=== PATIENT | female | born 1960 | race American Indian/Alaskan Native ===

== ENCOUNTER 2017-03-26 06:30 | Day surgery (SDC) | payer OTHER ==
[2017-03-26] MEDS ORDERED: DIPRIVAN 10 MG/ML IV ONE (07:27)
[2017-03-26] MEDS ORDERED: SUBLIMAZE ONE (07:28)
[2017-03-26] MEDS ORDERED: NACL BACTERIOSTATIC INFILTRATI ONE (07:40)
--- NOTE | 2017-03-26 07:43 | Anesthesia Consultation ---
Anesthesia Consult and Med Hx Date of service: 03/26/17 - Airway Anesthetic Teeth Evaluation: Good ROM Head & Neck: Adequate Mental/Hyoid Distance: Adequate Mallampati Class: Class II Intubation Access Assessment: Probably Good - Pulmonary Exam CTA: Yes - Cardiac Exam Cardiac Exam: RRR - Pre-Operative Health Status ASA Pre-Surgery Classification: ASA2 Proposed Anesthetic Plan: General - Pulmonary Hx Smoking: No (QUIT 23 YRS AGO) Hx Asthma: No Hx Respiratory Symptoms: No SOB: No COPD: No Hx Pneumonia: No Hx Sleep Apnea: No - Cardiovascular System Hx Hypertension: Yes Hx Coronary Artery Disease: No Hx Heart Attack/AMI: No Hx Angina: No Hx Peripheral Vascular Disease: No - Central Nervous System Hx Seizures: No CVA: No Hx Psychiatric Problems: No - Gastrointestinal Hx Gastroesophageal Reflux Disease: No - Endocrine Hx Renal Disease: No Hx End Stage Renal Disease: No Hx Insulin Dependent Diabetes: No Hx Non-Insulin Dependent Diabetes: Yes - Hematic Hx Anemia: Yes - Other Systems Hx Alcohol Use: No Hx Substance Use: No Hx Cancer: No Hx Obesity: No
[2017-03-26] MEDS ORDERED: PERCOCET 5/325 PO PRN (07:44)
[2017-03-26] MEDS ORDERED: MORPHINE IV PRN (07:44)
[2017-03-26] MEDS ORDERED: ZOFRAN IV PRN (07:44)
--- NOTE | 2017-03-26 07:44 | Anesthesia Day of Surgery ---
Anesthesia Day of Surgery - Day of Surgery Patient Examined: Yes Patient H&P Reviewed: Yes Patient is NPO: Yes
[2017-03-26] MEDS ORDERED: GARAMYCIN IV SCH (07:45)
--- NOTE | 2017-03-26 07:46 | Short Stay Summary ---
Short Stay Documentation Date of service: 03/26/17 Narrative H&P: Pt is a 56yo BF G0 presents for surgical evaluation and treatment of postmenopausal bleeding. Pelvic u/s showed a thickened endometrium with irregular borders. She is now scheduled for a Hysteroscopy with D&C. She had a previous Hysteroscopy with D&C in 2015 with benign pathology. - History Principal diagnosis: Postmenopausal bleeding H&P: obtained from office Past Medical History: No medical history Past Surgical History: Other (D&C) Social history: no significant social history, - Allergies and Medications Current Medications: Allergies meperidine HCl [From Demerol] Allergy (Verified 02/07/15 09:02) Itching Penicillins Allergy (Verified 02/07/15 09:02) Swelling Home Medications Medication Instructions Recorded Confirmed Last Taken Type Losartan [Cozaar] 50 mg PO DAILY #30 tablet 06/21/15 03/26/17 03/26/17 05:30 Rx Multivitamin with Folic Acid [One 400 mcg PO DAILY #30 tablet 06/21/15 03/26/17 03/24/17 Rx Daily Multivitamin Tablet] Amlodipine Besylate [Norvasc] 10 mg PO QDAY 03/26/17 03/26/17 03/26/17 05:30 History Empagliflozin (Nf) [Jardiance (Nf)] 1 tab PO QDAY 03/26/17 03/26/17 03/25/17 History Active Medications Gentamicin Sulfate (Garamycin) 120 mg 1.5 mg/kg (120 mg) IV PREOP MARIE PRN Reason: Protocol Clindamycin HCl (Cleocin 600 Mg/50 Ml) 600 mg in 50 mls @ 100 mls/hr IV PREOP NR PRN Reason: Protocol Lactated Ringer's (Lactated Ringers) 1,000 mls @ 125 mls/hr IV DIRECT MARIE - Physical exam General appearance: no acute distress Integumentary: no rash HEENT: Atraumatic Lungs: Clear to auscultation Breasts: deferred Heart: Regular rate Gastrointestinal: normal Female Genitourinary: deferred Rectal Exam: deferred Extremities: No edema Neurological: Normal gait, Normal speech - Brief post op/procedure progress note Date of procedure: 03/26/17 Pre-op diagnosis: Postmenopausal bleeding Post-op diagnosis: same Procedure: 1. Hysteroscopy 2. D&C Anesthesia: MAC Findings: A 10 weeks size uterus with moderate amounts of endometrial tissue obtained for pathology. Surgeon: WILNER ARNETT Estimated blood loss: minimal Pathology: list (endometrial curettings) Specimen disposition: to lab Condition: stable - Hospital course Hospital course: Unremarkable. - Disposition Condition at discharge: Good Disposition: DC- TO HOME OR SELFCARE - Discharge Diagnoses (1) Post-menopausal bleeding Status: Acute Short Stay Discharge Plan Activity: no restrictions Diet: regular Additional Instructions: YOU CAN REMOVE YOUR SCOPALAMINE PATCH IN 3 DAYS. WASH YOUR HANDS AFTER REMOVING. Follow up with: PRIMARY CARE, [Primary Care Provider] - 7 Days WILNER ARNETT MD [Staff Physician] - 14 Days Prescriptions: Ibuprofen [Motrin] 800 mg PO Q8HR PRN #20 tablet PRN Reason: Pain, Moderate (4-6)
[2017-03-26] MEDS ORDERED: TRANSDERM-SCOP TD NR (08:00)
[2017-03-26] MEDS ORDERED: LACTATED RINGERS 1,000 ML IV SCH (08:00)
[2017-03-26] MEDS ORDERED: VERSED IV NR (08:00)
[2017-03-26] MEDS ORDERED: PEPCID PO NR (08:00)
[2017-03-26] MEDS ORDERED: GARAMYCIN/NS 120MG/100ML 120 MG/100 ML BAG IV NR (08:00)
[2017-03-26] MEDS ORDERED: CLEOCIN 600 MG/50 mL 600 MG/50 ML BAG IV NR (08:00)
[2017-03-26 08:17] LABS: Hematocrit 43.7 % (30.3-42.9); Hemoglobin 14.6 gm/dl (10.1-14.3)
[2017-03-26] MEDS ORDERED: XYLOCAINE MPF 2% ONE (08:50)
[2017-03-26] MEDS ORDERED: DECADRON ONE (08:51)
[2017-03-26] MEDS ORDERED: ZOFRAN ONE (08:51)
[2017-03-26] MEDS ORDERED: NACL 0.9% IR ONE ×2 (09:00)
--- NOTE | 2017-03-26 09:07 | Operative Report ---
Operative Report Operative Report: PREOPERATIVE DIAGNOSIS: Postmenopausal bleeding POSTOPERATIVE DIAGNOSIS: Same OPERATIVE PROCEDURE: 1. Hysteroscopy 2. Dilatation and curettage. SURGEON: Myron Becker MD ANESTHESIA: Gen. Mac ANESTHESIOLOGIST: Dr. Thomas ESTIMATED BLOOD LOSS: 10 mL's FINDINGS: A 10 week size uterus with moderate amount of endometrial tissue obtained COMPLICATIONS: None COUNTS: Correct x3. PROCEDURE: After the patient was correctly identified, and after general anesthesia was administered, the patient was prepped and draped in the usual sterile fashion and placed in dorsal lithotomy position. First, the bladder was emptied using a straight catheter. Next, a speculum was placed in the vaginal vault and the anterior lip of the cervix was grasped using a single- tooth tenaculum. The uterus was sounded to 10 cm. The cervical os was sequentially dilated, and hysteroscope was introduced into the cervical canal. Visualization of endometrial cavity found lush amounts of endometrial tissue and possible endometrial polyps. Next the hysteroscope was removed, and sharp curettage was performed yielding moderate amounts of endometrial tissue was sent to pathology. At this point the procedure was considered complete. All instruments were removed from the vagina. The patient tolerated the procedure well and was transferred to the recovery room in stable condition.
--- NOTE | 2017-03-26 13:23 | Post Anesthesia Evaluation ---
- Post Anesthesia Evaluation Patient Participated: Yes Airway Patent: Yes Stable Respiratory Function: Yes Nausea/Vomiting: No Temp > 96.8F: Yes Pain Manageable: Yes Adequeate Hydration: Yes Anesthesia Complications: No
[2017-03-26 14:43] VITALS: BP 106/73
== END 2017-03-26 11:13 | disposition home or self-care (01) ==
LOC: OR 06:30
PROVIDERS: ATTEND Obstetrics & Gynecology
DX: N95.0 Postmenopausal bleeding (principal); I10 Essential (primary) hypertension; E11.9 Type 2 diabetes mellitus without complications; Z88.0 Allergy status to penicillin; Z88.5 Allergy status to narcotic agent; Z79.899 Other long term (current) drug therapy; Z87.891 Personal history of nicotine dependence
CPT/HCPCS: 36415; 58558; 82962; 85014; 85018; 88305; A4217; J1100; J1580; J2250; J2270; J2405; J2704; J3010; J7120

== ENCOUNTER 2017-04-14 10:57 | Inpatient (IN) | payer OTHER ==
--- NOTE | 2017-04-08 11:35 | Anesthesia Consultation ---
Anesthesia Consult and Med Hx Date of service: 04/08/17 - Airway Anesthetic Teeth Evaluation: Good ROM Head & Neck: Adequate Mental/Hyoid Distance: Adequate Mallampati Class: Class I Intubation Access Assessment: Good - Pulmonary Exam CTA: Yes - Cardiac Exam Cardiac Exam: RRR - Pre-Operative Health Status ASA Pre-Surgery Classification: ASA3 Proposed Anesthetic Plan: General - Pulmonary Hx Smoking: No (QUIT 24 YRS AGO) Hx Respiratory Symptoms: No - Cardiovascular System Hx Hypertension: Yes Hx Peripheral Vascular Disease: No - Central Nervous System Hx Psychiatric Problems: No - Gastrointestinal Hx Gastroesophageal Reflux Disease: No - Endocrine Hx Insulin Dependent Diabetes: No Hx Non-Insulin Dependent Diabetes: Yes - Hematic Hx Anemia: Yes - Other Systems Hx Cancer: No Hx Obesity: No - Additional Comments Anesthesia Medical History Comments: had PONV in the past. Scope patch works well. Has trouble sleeping but no sleep apnea. Lost neice few weeks ago.
[2017-04-08 12:15] LABS: Hematocrit 47.3 % (30.3-42.9); Hemoglobin 15.2 gm/dl (10.1-14.3); Mean Corpuscular HGB Conc 32 % (30-34); Mean Corpuscular Hemoglobin 27 pg (28-32); Mean Corpuscular Volume 85 fl (79-97); Platelet Count 227 K/mm3 (140-440); Red Cell Distribution Width 13.3 % (13.2-15.2); White Blood Count 12.8 K/mm3 (4.5-11.0)
[2017-04-08 12:28] LABS: Anion Gap 17 mmol/L; BUN/Creatinine Ratio 20; Blood Urea Nitrogen 16 mg/dL (7-17); Calcium 9.4 mg/dL (8.4-10.2); Carbon Dioxide 28 mmol/L (22-30); Chloride 98.8 mmol/L (98-107); Glucose 87 mg/dL (65-100); Potassium 3.9 mmol/L (3.6-5.0); Sodium 140 mmol/L (137-145)
[2017-04-08 14:15] LABS: Basophils % (Manual) 0 % (0.0-1.8); Blastocytes % (Manual) 0 %; Diff Status Complete; RBC Morphology Normal
[~2017-04-14 10:57] MED LIST: LACTATED RINGERS 1,000 ML IV SCH; PEPCID PO NR; TRANSDERM-SCOP TD NR; VERSED IV NR
--- NOTE | 2017-04-14 11:22 | History and Physical Report ---
History of Present Illness Date of examination: 04/14/17 Chief complaint: Postmenopausal bleeding History of present illness: Pt is a 56yo BF G0 LMP 01/2015 who presents for surgical evaluation and treatment of postmenopausal bleeding. Pelvic u/s showed a thickened endometrium with irregular borders. She had a Hysteroscopy with D&C which showed benign pathology 03/26/17 and now she presents for a Robotic Assisted Total Hysterectomy with Bilateral SalpingoOophorectomy. Past History Past Medical History: no pertinent history Past Surgical History: D&C, other (ovarian cystectomy) Family/Genetic History: none Social history: no significant social history, Medications and Allergies Allergies Allergy/AdvReac Type Severity Reaction Status Date / Time meperidine HCl [From Demerol] Allergy Itching Verified 04/07/17 19:32 Penicillins Allergy Swelling Verified 04/07/17 19:32 Home Medications Medication Instructions Recorded Confirmed Last Taken Type Losartan [Cozaar] 50 mg PO DAILY #30 tablet 06/21/15 04/14/17 04/14/17 08:45 Rx Multivitamin with Folic Acid [One 400 mcg PO DAILY #30 tablet 06/21/15 04/14/17 04/11/17 Rx Daily Multivitamin Tablet] Amlodipine Besylate [Norvasc] 10 mg PO QDAY 03/26/17 04/14/17 04/13/17 16:00 History Empagliflozin (Nf) [Jardiance (Nf)] 1 tab PO QDAY 03/26/17 04/14/17 04/13/17 History Ibuprofen [Motrin] 800 mg PO Q8HR PRN #20 tablet 03/26/17 04/14/17 04/07/17 Rx Active Meds: Active Medications Lactated Ringer's (Lactated Ringers) 1,000 mls @ 100 mls/hr IV DIRECT MARIE Midazolam HCl (Versed) 2 mg IV PREOP NR Stop: 04/14/17 23:59 Scopolamine (Transderm-Scop) 1 each TD PREOP NR Stop: 04/14/17 23:00 Review of Systems All systems: negative - Vital Signs Vital signs: Vital Signs Temp Pulse Resp BP 98.2 F 64 16 94/60 04/08/17 11:00 04/08/17 11:00 04/08/17 11:00 04/08/17 11:00 Temp Pulse Resp BP Pulse Ox 98.2 F 64 16 94/60 04/08/17 11:00 04/08/17 11:00 04/08/17 11:00 04/08/17 11:00 - Physical Exam Breasts: Positive: deferred Cardiovascular: Regular rate Lungs: Positive: Clear to auscultation Abdomen: Positive: normal appearance Genitourinary (Female): Positive: normal external genitalia Vagina: Positive: normal moisture Uterus: Positive: enlarged Extremities: Positive: normal Results Result Diagrams: 04/14/17 11:25 04/08/17 11:30 All other labs normal. Ultrasound: report reviewed Assessment and Plan - Patient Problems (1) Post-menopausal bleeding Onset Date: 04/14/17 Current Visit: No Status: Acute Plan to address problem: A: Postmenopausal bleeding - Benign endometrial biopsy P: Will proceed with a Robotic Assisted Total Hysterectomy with Bilateral SalpingoOophorectomy
[2017-04-14] MEDS ORDERED: GARAMYCIN 120 MG in NACL 0.9% 100 ML IV SCH (11:30)
[2017-04-14] MEDS ORDERED: CLEOCIN 600 MG/50 mL 600 MG/50 ML BAG IV SCH (12:00)
[2017-04-14] MEDS ORDERED: GARAMYCIN/NS 120MG/100ML 120 MG/100 ML BAG IV SCH (12:00)
[2017-04-14 12:11] LABS: Basophils % (Auto) 0.6 % (0.0-1.8); Eosinophils % (Auto) 3.5 % (0.0-4.3); Hematocrit 41.1 % (30.3-42.9); Hemoglobin 13.4 gm/dl (10.1-14.3); Mean Corpuscular HGB Conc 33 % (30-34); Mean Corpuscular Hemoglobin 27 pg (28-32); Mean Corpuscular Volume 84 fl (79-97); Platelet Count 193 K/mm3 (140-440); Red Blood Count 4.89 M/mm3 (3.65-5.03); Red Cell Distribution Width 13.1 % (13.2-15.2); White Blood Count 10.3 K/mm3 (4.5-11.0)
[2017-04-14] MEDS ORDERED: SUBLIMAZE ONE (12:15)
[2017-04-14] MEDS ORDERED: DIPRIVAN 10 MG/ML IV ONE (12:15)
[2017-04-14] MEDS ORDERED: MARCAINE 0.5% INFILTRATI NR (12:15)
[2017-04-14] MEDS ORDERED: DECADRON IV NR (12:30)
[2017-04-14] MEDS ORDERED: SUBLIMAZE IV NR (12:30)
[2017-04-14] MEDS ORDERED: PEPCID PO NR (12:30)
[2017-04-14] MEDS ORDERED: NEURONTIN PO NR (12:30)
--- NOTE | 2017-04-14 12:33 | Anesthesia Day of Surgery ---
Anesthesia Day of Surgery - Day of Surgery Patient Examined: Yes Patient H&P Reviewed: Yes Patient is NPO: Yes
[2017-04-14] MEDS ORDERED: NEOSPORIN GU IR ONE ×2 (12:41→14:25)
[2017-04-14] MEDS ORDERED: ZEMURON IV ONE (13:28)
[2017-04-14] MEDS ORDERED: DECADRON ONE (13:28)
[2017-04-14] MEDS ORDERED: XYLOCAINE MPF 2% ONE (13:28)
[2017-04-14] MEDS ORDERED: NEOSTIGMINE ONE (13:34)
[2017-04-14] MEDS ORDERED: ROBINUL ONE (13:34)
[2017-04-14] MEDS ORDERED: KENALOG-40 ONE (13:39)
[2017-04-14] MEDS ORDERED: NEO SYNEPHRINE/NS Syringe(OR USE) IV ONE (13:39)
[2017-04-14] MEDS ORDERED: MARCAINE 0.5% INFILTRATI ONE ×2 (13:39→14:26)
[2017-04-14] MEDS ORDERED: TORADOL ONE (13:45)
[2017-04-14] MEDS ORDERED: ZOFRAN ONE (13:45)
[2017-04-14] MEDS ORDERED: LACTATED RINGERS 1,000 ML ONE (13:55)
[2017-04-14] MEDS ORDERED: TYLENOL PO PRN (14:23)
[2017-04-14] MEDS ORDERED: ZOFRAN IV PRN (14:23)
[2017-04-14] MEDS ORDERED: NORCO 5/325 PO PRN (14:23)
[2017-04-14] MEDS ORDERED: MILK OF MAGNESIA PO PRN (14:23)
[2017-04-14] MEDS ORDERED: NARCAN 0.4 MG/1 ML IV PRN (14:23)
[2017-04-14] MEDS ORDERED: KENALOG-40 IM ONE (14:26)
[2017-04-14] MEDS ORDERED: NACL 0.9% IR ONE ×2 (14:26)
--- NOTE | 2017-04-14 14:40 | Operative Report ---
Operative Report Operative Report: Date of procedure: 04/14/2017 Pre-operative diagnosis: Postmenopausal bleeding Post-operative diagnosis: Same Procedure name(s): 1. Robotic-assisted total hysterectomy 2. Left salpingo- oophorectomy Surgeon: Myron Becker MD Amusement Ride Inspector: Constance Casper SA Anesthesia: NANCIE block followed by general endotracheal intubation by Dr. Thomas EBL: 50 mL's Findings: A 10-12 week size uterus with normal left tube and atrophic left ovary. Absent right fallopian tube and ovary. Procedure: After the patient's first correctly identified she was prepped and draped in the usual sterile fashion and placed in the dorsolithotomy position. The bladder was first catheterized using Coelho catheter and the speculum was placed in the vagina and the anterior lip of the cervix was grasped using a single-tooth tenaculum, and the medium Vesicare cup was placed. The tenaculum and speculum was then removed from the vagina and attention was then turned to the abdomen. The skin knife was used to make a small incision approximately 5 cm above the umbilicus through which a 12 mm trocar was placed under direct visualization. After adequate amount of abdominal insufflation visualization of the pelvic organs found the uterus to be enlarged and the left tube was found to be normal and the left ovary atrophic. The right fallopian tube and ovary were absent. A right lateral incision was made through which a 5 mm trocar was placed under direct visualization. A right and left paramedian incision was made through which the 8 mm trochars were placed under direct visualization. The patient was then placed in steep Trendelenburg positioning and the robot was docked on the patient's left side. After all the robotic ports were connected and adequate functioning of the robotic arms were tested the surgeon then proceeded to the console to begin the hysterectomy. First the left round ligament was grasped, cauterized and cut, the left infundibulopelvic ligament was grasped, cauterized and cut, and the left fallopian tube also grasped, cauterized and cut thus freeing the left ovary from the left pelvic sidewall. The right fallopian tube and ovary were absent. The right round ligament was grasped, cauterized and cut, thus freeing the uterus from the right pelvic sidewall. The bladder flap was taken down anteriorly and the uterine vessels were grasped, cauterized and cut bilaterally. The cardinal ligaments were sequentially grasped, cauterized and cut down to the level of the uterosacral ligaments. At this time the posterior colpotomy was performed over the Vcare cup, and the cervix was circumscribed beginning posteriorly and meeting anteriorly until the cervix was freed. The cervix, uterus, left fallopian tube and ovary was then removed through the vagina and sent to pathology. The vaginal cuff was then closed using 2-0 Vloc suture in a running fashion. Irrigation was then performed and after good hemostasis was achieved, the procedure was considered complete. The Tisseel sealant was then sprayed across the vaginal cuff site, and after excellent hemostasis was assured, Interceed was placed across the vaginal cuff site. All instruments were then removed from the abdominal cavity. And each incision was closed using 0 Vicryl suture in a [id number] configuration on the fascia followed by 4-0 Monocryl suture in a subcuticular fashion on the skin. Each incision was also infiltrated using 0.5% Marcaine solution. The vaginal pack was removed. The patient tolerated the procedure well and was transported to the recovery room in stable condition.
[2017-04-14] MEDS ORDERED: D5LR 1,000 ML IV SCH (15:00)
[2017-04-14] MEDS: ePHEDrine SULFATE IV PRN ×2 (15:01→15:40)
[2017-04-14] MEDS ORDERED: DILAUDID IV PRN ×3 (15:07→16:30)
[2017-04-14] MEDS: DILAUDID IV PRN ×3 (15:25→15:59)
[2017-04-14] MEDS ORDERED: CLIMARA TD SCH (16:00)
[2017-04-14] MEDS ORDERED: DILAUDID IV ONE (16:00)
--- NOTE | 2017-04-14 18:56 | Progress Note ---
Assessment and Plan - Patient Problems (1) Post-menopausal bleeding Onset Date: 04/14/17 Current Visit: No Status: Resolved (2) Status post robot-assisted surgical procedure Onset Date: 04/14/17 Current Visit: Yes Status: Acute Plan to address problem: A: S/P RATH with LSO - Doing well P: Continue RPOC Anticipate discharge home tomorrow. Subjective - Subjective Date of service: 04/14/17 Principal diagnosis: s/p RATH with LSO - POD #0 Interval history: Pt is s/p a Robotic Assisted Total Hysterectomy with Bilateral SalpingoOophorectomy. Pt tolerated the procedure well. Discussed findings at surgery with pt and her . All questions answered. Patient reports: pain well controlled Objective - Vital Signs Latest vital signs: Vital Signs Temp Pulse Resp BP Pulse Ox 04/14/17 17:05 97.9 F 80 14 107/69 95 04/14/17 16:30 97.7 F 74 15 104/63 95 04/14/17 16:15 82 13 91/54 97 04/14/17 16:00 87 14 93/56 96 04/14/17 15:59 13 04/14/17 15:45 82 14 103/60 97 04/14/17 15:30 80 12 85/55 93 04/14/17 15:25 15 04/14/17 15:15 79 13 95/59 100 04/14/17 15:00 83 12 111/69 100 04/14/17 14:45 73 12 78/50 100 04/14/17 14:40 80 14 81/53 100 04/14/17 14:35 74 12 82/50 100 04/14/17 14:31 97.0 F L 73 13 83/51 100 04/14/17 12:45 74 12 93/59 98 04/14/17 12:40 80 13 91/60 98 04/14/17 12:35 80 16 106/69 100 04/14/17 11:38 98.1 F 74 15 106/67 96 04/14/17 11:15 98.1 F 74 15 106/67 96 Intake and Output 04/14/17 04/14/17 04/14/17 06:59 14:59 22:59 Intake Total 850 1500 Output Total 150 250 Balance 700 1250 Intake: IV 850 1500 Output: Urine 150 250 Other: Voiding Method Toilet - Exam Abdomen: Present: normal appearance, soft Incision: Present: normal, dry, intact, dressed - Labs Labs: Abnormal lab results 04/14/17 04/14/17 Range/Units 11:25 14:41 MCH 27 L (28-32) pg RDW 13.1 L (13.2-15.2) % Lymph % (Auto) 38.9 H (13.4-35.0) % POC Glucose 148 H (70-105)
[2017-04-14] MEDS: TORADOL IV SCH (20:22)
[2017-04-14] MEDS ORDERED: GARAMYCIN/NS 80 MG/100 ML 100 ML IV SCH (20:30)
[2017-04-14] MEDS: PERCOCET 5/325 PO PRN (21:04)
[2017-04-14] MEDS: CLEOCIN 600 MG/50 mL 600 MG/50 ML BAG IV SCH (21:12)
[2017-04-14] MEDS ORDERED: COLACE PO SCH (22:00)
[2017-04-15] MEDS: TORADOL IV SCH (03:00)
[2017-04-15] MEDS: CLEOCIN 600 MG/50 mL 600 MG/50 ML BAG IV SCH (03:42)
[2017-04-15 05:52] LABS: Hematocrit 40.2 % (30.3-42.9)
--- NOTE | 2017-04-15 08:17 | Progress Note ---
Assessment and Plan - Patient Problems (1) Post-menopausal bleeding Onset Date: 04/14/17 Current Visit: No Status: Resolved (2) Status post robot-assisted surgical procedure Onset Date: 04/14/17 Current Visit: Yes Status: Resolved Plan to address problem: A: S/P RATH with LSO - POD #1 Doing well P: May go home today Subjective - Subjective Date of service: 04/15/17 Principal diagnosis: s/p RATH with LSO - POD #1 Interval history: Pt is s/p a Robotic Assisted Total Hysterectomy with Bilateral SalpingoOophorectomy, and feeling well. She is tolerating a liquid diet without nausea or vomiting, ambulating and voiding without difficulty. Patient reports: appetite normal, voiding normally, pain well controlled, ambulating normally, no flatus Objective - Vital Signs Latest vital signs: Vital Signs Temp Pulse Pulse Resp Resp BP BP 04/15/17 04:55 98.6 F 76 20 97/60 04/15/17 03:30 18 04/15/17 03:00 18 04/15/17 00:09 98.0 F 89 20 93/55 04/14/17 21:04 18 04/14/17 20:52 18 04/14/17 20:22 18 04/14/17 20:19 97.5 F L 88 18 98/59 04/14/17 19:45 18 18 04/14/17 17:05 97.9 F 80 14 107/69 04/14/17 16:55 97.9 F 80 80 16 107/69 04/14/17 16:30 97.7 F 74 15 104/63 04/14/17 16:15 82 13 91/54 04/14/17 16:00 87 14 93/56 04/14/17 15:59 13 04/14/17 15:45 82 14 103/60 04/14/17 15:30 80 12 85/55 04/14/17 15:25 15 04/14/17 15:15 79 13 95/59 04/14/17 15:00 83 12 111/69 04/14/17 14:45 73 12 78/50 04/14/17 14:40 80 14 81/53 04/14/17 14:35 74 12 82/50 04/14/17 14:31 97.0 F L 73 13 83/51 04/14/17 12:45 74 12 93/59 04/14/17 12:40 80 13 91/60 04/14/17 12:35 80 16 106/69 04/14/17 11:38 98.1 F 74 15 106/67 04/14/17 11:15 98.1 F 74 15 106/67 Pulse Ox 04/15/17 04:55 97 04/15/17 03:30 04/15/17 03:00 04/15/17 00:09 96 04/14/17 21:04 04/14/17 20:52 04/14/17 20:22 04/14/17 20:19 98 04/14/17 19:45 96 04/14/17 17:05 95 04/14/17 16:55 96 04/14/17 16:30 95 04/14/17 16:15 97 04/14/17 16:00 96 04/14/17 15:59 04/14/17 15:45 97 04/14/17 15:30 93 04/14/17 15:25 04/14/17 15:15 100 04/14/17 15:00 100 04/14/17 14:45 100 04/14/17 14:40 100 04/14/17 14:35 100 04/14/17 14:31 100 04/14/17 12:45 98 04/14/17 12:40 98 04/14/17 12:35 100 04/14/17 11:38 96 04/14/17 11:15 96 Intake and Output 04/14/17 04/15/17 04/15/17 22:59 06:59 14:59 Intake Total 1790 620 Output Total 700 2400 Balance 1090 -1780 Intake: IV 1550 CLEOCIN 600 MG/50 mL 600 50 mg In 50 ml @ 100 mls/hr IV Q8H [facility] Rx#:[id number] Oral 240 620 Output: Urine 700 2400 Indwelling Catheter 450 2400 Other: Total, Intake Amount 240 620 Total, Output Amount 450 2400 Voiding Method Indwelling Catheter Indwelling Catheter # Bowel Movements 0 - Exam Breasts: Present: deferred Cardiovascular: Present: Regular rate Lungs: Present: Clear to auscultation Abdomen: Present: normal appearance, soft Extremities: Present: normal Incision: Present: normal, dry, intact - Labs Labs: Abnormal lab results 04/14/17 04/14/17 04/14/17 Range/Units 11:25 14:41 22:48 MCH 27 L (28-32) pg RDW 13.1 L (13.2-15.2) % Lymph % (Auto) 38.9 H (13.4-35.0) % POC Glucose 148 H 225 H (70-105) Laboratory Tests 04/08/17 04/08/17 04/14/17 11:30 11:30 11:25 WBC 12.8 H RBC 5.60 H Hgb 15.2 H Hct 47.3 H MCV 85 MCH 27 L MCHC 32 RDW 13.3 Plt Count 227 Lymph % (Auto) Marion % (Auto) Eos % (Auto) Baso % (Auto) Lymph # Drier And Pulverizer Tender Marion # Eos # Baso # Add Manual Diff Complete Total Counted 100 Seg Neutrophils % Seg Neuts % (Manual) 56.0 Band Neutrophils % 0 Lymphocytes % (Manual) 32.0 Reactive Lymphs % (Man) 0 Monocytes % (Manual) 9.0 H Eosinophils % (Manual) 3.0 Basophils % (Manual) 0 Metamyelocytes % 0 Myelocytes % 0 Promyelocytes % 0 Blast Cells % 0 Nucleated RBC % Not Reportable Seg Neutrophils # Seg Neutrophils # Man 7.2 Band Neutrophils # 0.0 Lymphocytes # (Manual) 4.1 Abs React Lymphs (Man) 0.0 Monocytes # (Manual) 1.2 H Eosinophils # (Manual) 0.4 Basophils # (Manual) 0.0 Metamyelocytes # 0.0 Myelocytes # 0.0 Promyelocytes # 0.0 Blast Cells # 0.0 WBC Morphology Not Reportable Hypersegmented Neuts Not Reportable Hyposegmented Neuts Not Reportable Hypogranular Neuts Not Reportable Smudge Cells Not Reportable Toxic Granulation Not Reportable Toxic Vacuolation Not Reportable Dohle Bodies Not Reportable Pelger-Huet Anomaly Not Reportable Thaddeus Rods Not Reportable Platelet Estimate Appears normal Clumped Platelets Not Reportable Plt Clumps, EDTA Not Reportable Large Platelets Not Reportable Giant Platelets Not Reportable Platelet Satelliting Not Reportable Plt Morphology Comment Not Reportable RBC Morphology Normal Dimorphic RBCs Not Reportable Polychromasia Not Reportable Hypochromasia Not Reportable Poikilocytosis Not Reportable Anisocytosis Not Reportable Microcytosis Not Reportable Macrocytosis Not Reportable Spherocytes Not Reportable Pappenheimer Bodies Not Reportable Sickle Cells Not Reportable Target Cells Not Reportable Tear Drop Cells Not Reportable Ovalocytes Not Reportable Helmet Cells Not Reportable Albarado-Boissevain Bodies Not Reportable [place] Rings Not Reportable [place] Cells Not Reportable Bite Cells Not Reportable Crenated Cell Not Reportable Elliptocytes Not Reportable Acanthocytes (Spur) Not Reportable Rouleaux Not Reportable Hemoglobin C Crystals Not Reportable Schistocytes Not Reportable Malaria parasites Not Reportable Willie Bodies Not Reportable Hem Pathologist Commnt No Sodium 140 Potassium 3.9 Chloride 98.8 Carbon Dioxide 28 Anion Gap 17 BUN 16 Creatinine 0.8 Estimated GFR > 60 BUN/Creatinine Ratio 20 Glucose 87 POC Glucose Calcium 9.4 Blood Type O POSITIVE Antibody Screen Negative 04/14/17 04/14/17 04/14/17 11:25 11:30 14:41 WBC 10.3 RBC 4.89 Hgb 13.4 Hct 41.1 MCV 84 MCH 27 L MCHC 33 RDW 13.1 L Plt Count 193 Lymph % (Auto) 38.9 H Marion % (Auto) 5.8 Eos % (Auto) 3.5 Baso % (Auto) 0.6 Lymph # 4.0 Marion # 0.6 Eos # 0.4 Baso # 0.1 Add Manual Diff Total Counted Seg Neutrophils % 51.2 Seg Neuts % (Manual) Band Neutrophils % Lymphocytes % (Manual) Reactive Lymphs % (Man) Monocytes % (Manual) Eosinophils % (Manual) Basophils % (Manual) Metamyelocytes % Myelocytes % Promyelocytes % Blast Cells % Nucleated RBC % Seg Neutrophils # 5.3 Seg Neutrophils # Man Band Neutrophils # Lymphocytes # (Manual) Abs React Lymphs (Man) Monocytes # (Manual) Eosinophils # (Manual) Basophils # (Manual) Metamyelocytes # Myelocytes # Promyelocytes # Blast Cells # WBC Morphology Hypersegmented Neuts Hyposegmented Neuts Hypogranular Neuts Smudge Cells Toxic Granulation Toxic Vacuolation Dohle Bodies Pelger-Huet Anomaly Thaddeus Rods Platelet Estimate Clumped Platelets Plt Clumps, EDTA Large Platelets Giant Platelets Platelet Satelliting Plt Morphology Comment RBC Morphology Dimorphic RBCs Polychromasia Hypochromasia Poikilocytosis Anisocytosis Microcytosis Macrocytosis Spherocytes Pappenheimer Bodies Sickle Cells Target Cells Tear Drop Cells Ovalocytes Helmet Cells Albarado-Boissevain Bodies [place] Rings [place] Cells Bite Cells Crenated Cell Elliptocytes Acanthocytes (Spur) Rouleaux Hemoglobin C Crystals Schistocytes Malaria parasites Willie Bodies Hem Pathologist Commnt Sodium Potassium Chloride Carbon Dioxide Anion Gap BUN Creatinine Estimated GFR BUN/Creatinine Ratio Glucose POC Glucose 89 148 H Calcium Blood Type Antibody Screen 04/14/17 04/15/17 22:48 05:27 WBC RBC Hgb 13.0 Hct 40.2 MCV MCH MCHC RDW Plt Count Lymph % (Auto) Marion % (Auto) Eos % (Auto) Baso % (Auto) Lymph # Marion # Eos # Baso # Add Manual Diff Total Counted Seg Neutrophils % Seg Neuts % (Manual) Band Neutrophils % Lymphocytes % (Manual) Reactive Lymphs % (Man) Monocytes % (Manual) Eosinophils % (Manual) Basophils % (Manual) Metamyelocytes % Myelocytes % Promyelocytes % Blast Cells % Nucleated RBC % Seg Neutrophils # Seg Neutrophils # Man Band Neutrophils # Lymphocytes # (Manual) Abs React Lymphs (Man) Monocytes # (Manual) Eosinophils # (Manual) Basophils # (Manual) Metamyelocytes # Myelocytes # Promyelocytes # Blast Cells # WBC Morphology Hypersegmented Neuts Hyposegmented Neuts Hypogranular Neuts Smudge Cells Toxic Granulation Toxic Vacuolation Dohle Bodies Pelger-Huet Anomaly Thaddeus Rods Platelet Estimate Clumped Platelets Plt Clumps, EDTA Large Platelets Giant Platelets Platelet Satelliting Plt Morphology Comment RBC Morphology Dimorphic RBCs Polychromasia Hypochromasia Poikilocytosis Anisocytosis Microcytosis Macrocytosis Spherocytes Pappenheimer Bodies Sickle Cells Target Cells Tear Drop Cells Ovalocytes Helmet Cells Albarado-Boissevain Bodies [place] Rings [place] Cells Bite Cells Crenated Cell Elliptocytes Acanthocytes (Spur) Rouleaux Hemoglobin C Crystals Schistocytes Malaria parasites Willie Bodies Hem Pathologist Commnt Sodium Potassium Chloride Carbon Dioxide Anion Gap BUN Creatinine Estimated GFR BUN/Creatinine Ratio Glucose POC Glucose 225 H Calcium Blood Type Antibody Screen
--- NOTE | 2017-04-15 08:39 | Discharge Summary ---
Providers - Providers Date of Admission: 04/14/17 14:23 Date of discharge: 04/15/17 Attending physician: WILNER ARNETT Primary care physician: WILNER ARNETT Hospitalization Reason for admission: other (Postmenopausal bleeding) Procedure: other (Robotic Assisted Total Hysterectomy with Left SalpingoOophorectomy) Episiotomy: none Incision: normal, dry, intact Other procedures: none complications: none Discharge diagnosis: other (s/p RATH with LSO) Hospital course: Pt is a 56yo BF G0 LMP 01/2015 who presented for surgical evaluation and treatment of postmenopausal bleeding. She underwent an uncomplicated Total Hysterectomy with Left SalpingoOophorectomy, and tolerated the procedure well. By POD #1 she was tolerating a liquid diet without nausea or vomiting, ambulating and voiding without difficulty, and thus was discharged to home on POD #1 in stable condition.. Condition at discharge: Good Disposition: DC-01 TO HOME OR SELFCARE - Discharge Diagnoses (1) Post-menopausal bleeding Status: Resolved Plan - Discharge Medications Prescriptions: HYDROcodone/APAP 5-325 [[place] 5-325 mg TAB] 1 each PO Q6HR PRN #30 tablet PRN Reason: Pain, Moderate (4-6) Ibuprofen [Motrin 800 MG tab] 800 mg PO Q8HR PRN #30 tablet PRN Reason: Pain, Moderate (4-6) - Provider Discharge Summary Activity: routine, no sex for 6 weeks, no heavy lifting 4 weeks, no strenuous exercise Diet: routine Instructions: routine Additional instructions: [] Smoking cessation referral if applicable(refer to patient education folder for contact #) [] Refer to [facility] Booklet Call your doctor immediately for: * Fever > 100.5 * Heavy vaginal bleeding ( >1 pad per hour) * Severe persistent headache * Shortness of breath * Reddened, hot, painful area to leg or breast * Drainage or odor from incision. * Keep incision clean and dry at all times and follow doctor's instructions regarding bathing/showering - Follow up plan Follow up: WILNER ARNETT MD [Primary Care Provider] - 14 Days
[2017-04-15] MEDS: PERCOCET 5/325 PO PRN (09:27)
[2017-04-15 12:47] VITALS: BP 87/55
== END 2017-04-15 15:00 | disposition home or self-care (01) | DRG 743 ==
LOC: OR 10:57 → OB 14:23
PROVIDERS: ADMIT Obstetrics & Gynecology; ATTEND Obstetrics & Gynecology
PROC: 0UT94ZZ Resection of Uterus, Percutaneous Endoscopic Approach (ICD-10-PCS; principal; 2017-04-14)
PROC: 0UT14ZZ Resection of Left Ovary, Percutaneous Endoscopic Approach (ICD-10-PCS; 2017-04-14)
PROC: 0UT64ZZ Resection of Left Fallopian Tube, Percutaneous Endoscopic Approach (ICD-10-PCS; 2017-04-14)
PROC: 8E0W4CZ Robotic Assisted Procedure of Trunk Region, Percutaneous Endoscopic Approach (ICD-10-PCS; 2017-04-14)
DX: N95.0 Postmenopausal bleeding (principal); E11.9 Type 2 diabetes mellitus without complications; D64.9 Anemia, unspecified; Z88.0 Allergy status to penicillin; Z88.8 Allergy status to other drugs, medicaments and biological substances; Z87.891 Personal history of nicotine dependence
CPT/HCPCS: 36415; 64450; 80048; 82962; 85007; 85014; 85018; 85025; 86850; 86900; 86901; 88307; A4217; C1765; C9250; J1100; J1170; J1580; J1885; J2250; J2370; J2405; J2704; J2710; J3010; J3301; J7120; J7121

== ENCOUNTER 2017-05-10 18:15 | Emergency (ER) | payer OTHER ==
[2017-05-10 18:23] VITALS: BP 91/57
[2017-05-10 19:44] LABS: Bacteria,Urine 1+ /HPF (Negative); Bilirubin,Urine NEG (Negative); Blood,Urine MOD (Negative); Color,Urine Straw (Yellow); Nitrite,Urine NEG (Negative); Protein,Urine <15 mg/dL mg/dL (Negative); Urobilinogen,Urine < 2.0 mg/dL (<2.0)
[2017-05-10 19:53] LABS: Hematocrit 43.3 % (30.3-42.9); Hemoglobin 14.1 gm/dl (10.1-14.3); Mean Corpuscular HGB Conc 33 % (30-34); Mean Corpuscular Hemoglobin 28 pg (28-32); Mean Corpuscular Volume 85 fl (79-97); Platelet Count 210 K/mm3 (140-440); Red Blood Count 5.08 M/mm3 (3.65-5.03); Red Cell Distribution Width 13.8 % (13.2-15.2)
[2017-05-10 21:06] LABS: Basophils % (Manual) 0 % (0.0-1.8); Total Cells Counted 100
[2017-05-10 21:07] LABS: RBC Morphology Normal
[2017-05-10 22:26] LABS: Alanine Aminotransferase 9 units/L (7-56); BUN/Creatinine Ratio 11; Blood Urea Nitrogen 11 mg/dL (7-17); Calcium 8.7 mg/dL (8.4-10.2); Hemolysis Index 15
== END 2017-05-10 23:00 | disposition left against medical advice (07) ==
LOC: ED 18:15
DX: Z53.21 Procedure and treatment not carried out due to patient leaving prior to being seen by health care provider (principal)
CPT/HCPCS: 36415; 80053; 81001; 85007; 85025; 86850; 86900; 86901